=== PATIENT | male | born 1955 | race African-American/Black ===

== ENCOUNTER 2016-11-26 12:15 | Emergency (ER) | payer MEDICAID, OTHER ==
[~2016-11-26] VITALS: Ht 175.3 cm; Wt 75.0 kg
[2016-11-26] MEDS ORDERED: KETOROLAC 30MG/ML VIAL IV STA (12:57)
[2016-11-26] MEDS ORDERED: ASPIRIN 81MG TABLET PO STA (12:57)
[2016-11-26 13:20] LABS: EOSINOPHILS % 1.8 % (0.0-5.0); HEMOGLOBIN. 11.4 g/dL (14.0-18.0); MEAN CORPUSCULAR HEMOGLOBIN 28.6 pg (28.0-32.0); MEAN CORPUSCULAR VOLUME 85.3 fL (80.0-94.0); MEAN PLATELET VOLUME 6.3 fl (7.4-10.4); NEUTROPHILS % 67.2 % (40.0-76.0); PLATELET 233 x1000/uL (130-400); RED BLOOD CELL COUNT 3.98 mill/uL (4.7-6.1); RED CELL DISTRIBUTION WIDTH 14.3 % (11.6-14.6)
[2016-11-26 13:31] LABS: D-DIMER 1.9 mg/L FEU (<0.50); INR 1.1
[2016-11-26 13:37] LABS: CARBON DIOXIDE 28 mEq/L (21-32); CHLORIDE 103 mEq/L (98-107); TROPONIN I < 0.02 ng/mL (0.00-0.04)
[2016-11-26 15:24] VITALS: BP 160/79
[2016-11-26 16:27] LABS: CLARITY URINE CLEAR (CLEAR); COLOR URINE DARK YELLOW (YELLOW); GLUCOSE URINE NEGATIVE (NEGATIVE); KETONES URINE NEGATIVE (NEGATIVE); LEUKOCYTE ESTERASE URINE NEGATIVE (NEGATIVE); NITRITE URINE NEGATIVE (NEGATIVE); OCCULT BLOOD URINE NEGATIVE (NEGATIVE); PROTEIN URINE NEGATIVE (NEGATIVE); SPECIFIC GRAVITY URINE 1.032 (1.005-1.030)
[2016-11-26 16:38] LABS: *AMPHETAMINES SCREEN URINE NEGATIVE (NEGATIVE); *BARBITURATES SCREEN URINE NEGATIVE (NEGATIVE); *BENZODIAZEPINES SCREEN URINE NEGATIVE (NEGATIVE); *COCAINE SCREEN URINE PRESUMTIVE POSITIVE (NEGATIVE); CANNABINOID URINE SCREEN PRESUMTIVE POSITIVE (NEGATIVE); METHADONE URINE SCREEN NEGATIVE (NEGATIVE); OPIATES URINE SCREEN NEGATIVE (NEGATIVE); PHENCYCLIDINE URINE SCREEN PRESUMTIVE POSITIVE (NEGATIVE)
== END 2016-11-26 17:38 | disposition home or self-care (01) ==
LOC: ER 12:24 → CANBEDREQ 17:58
DX: R07.9 Chest pain, unspecified (principal); I10 Essential (primary) hypertension; F17.210 Nicotine dependence, cigarettes, uncomplicated; F14.10 Cocaine abuse, uncomplicated
CPT/HCPCS: 36415; 71010; 80053; 80305; 81003; 83690; 84484; 85025; 85379; 85610; 85730; 93005; 96374; 99285; J1885; Z7610

== ENCOUNTER 2017-03-04 07:59 | Emergency (ER) | payer MEDICAID ==
[~2017-03-04] VITALS: Ht 180.3 cm; Wt 84.0 kg
[2017-03-04 08:30] LABS: BASOPHILS % 0.9 % (0.0-2.0); EOSINOPHILS % 0.5 % (0.0-5.0); HEMATOCRIT. 25.1 % (42.0-52.0); HEMOGLOBIN. 8.4 g/dL (14.0-18.0); LYMPHOCYTES % 15.7 % (20.0-50.0); MEAN CORPUSCULAR HEMOGLOBIN 29.2 pg (28.0-32.0); MEAN CORPUSCULAR VOLUME 87.3 fL (80.0-94.0); MEAN PLATELET VOLUME 6.8 fl (7.4-10.4); MONOCYTES % 7.8 % (2.0-8.0); NEUTROPHILS % 75.1 % (40.0-76.0); PLATELET 237 x1000/uL (130-400); RED BLOOD CELL COUNT 2.88 mill/uL (4.7-6.1); RED CELL DISTRIBUTION WIDTH 14.4 % (11.6-14.6)
[2017-03-04 08:39] LABS: INR 1.2; PARTIAL THROMBOPLASTIN TIME 27.1 sec (23.4-31.0)
[2017-03-04 08:48] LABS: CARBON DIOXIDE 24 mEq/L (21-32); CHLORIDE 108 mEq/L (98-107); CREATINE KINASE 87 IU/L (39-308); TROPONIN I 0.02 ng/mL (0.00-0.04)
[2017-03-04 08:49] LABS: CREATINE KINASE MB FRACTION 0.7 ng/mL (0.5-3.6)
[2017-03-04] MEDS ORDERED: ALBUTEROL (0.083%) 2.5MG/3ML NEB HHN STA (09:06)
[2017-03-04] MEDS ORDERED: FUROSEMIDE 40MG/4ML VIAL IVP ONE (09:15)
[2017-03-04] MEDS ORDERED: LEVOFLOXACIN 750MG PREMIX 150 ML IV ONE (09:15)
[2017-03-04 10:14] VITALS: BP 147/100
== END 2017-03-04 12:40 | disposition left against medical advice (07) ==
LOC: ER 07:59 → ENRESERV 12:11 → CANRESERV 12:11 → CANBEDREQ 12:30 → ER 12:40
DX: I50.9 Heart failure, unspecified (principal); I11.0 Hypertensive heart disease with heart failure; J18.9 Pneumonia, unspecified organism; F14.10 Cocaine abuse, uncomplicated; I69.351 Hemiplegia and hemiparesis following cerebral infarction affecting right dominant side; Z95.1 Presence of aortocoronary bypass graft; Z72.0 Tobacco use; Z86.73 Personal history of transient ischemic attack (TIA), and cerebral infarction without residual deficits
CPT/HCPCS: 36415; 71010; 80053; 82550; 82553; 83605; 83690; 83880; 84484; 85025; 85610; 85730; 87040; 93005; 94640; 96365; 96366; 96375; 99291; J1940; J1956; J7611; Z7610

== ENCOUNTER 2017-03-09 04:37 | Inpatient (IN) | payer MEDICAID ==
[~2017-03-09] VITALS: Ht 182.9 cm; Wt 64.9 kg
[2017-03-09] VITALS (15 sets, daily range): BP systolic 83–157; BP diastolic 59–112
[2017-03-09] MEDS ORDERED: ASPIRIN 81MG TABLET PO ONE (05:00)
[2017-03-09] MEDS ORDERED: NITROGLYCERIN OINT 1GM/INCH UDPKT TD ONE (05:00)
[2017-03-09 05:26] LABS: BG BASE EXCESS -1.1 mmol/L (-2.0-2.0); BG CARBOXYHEMOGLOBIN 1.6 % (0.5-1.5); BG DEOXYHEMOGLOBIN 4.7 % (0.0-5.0); BG FRACTION INSPIRED OXYGEN 21; BG HCO3 ACT 23.4 mmol/L (22.0-26.0); BG METHEMOGLOBIN 0.3 % (0.0-1.5); BG OXYGEN SATURATION 95.2 % (92.0-98.5); BG OXYHEMOGLOBIN 93.4 % (94.0-97.0); BG PCO2 38.3 mmHg (35.0-45.0); BG PH 7.404 (7.350-7.450); BG PO2 79.2 mmHg (75.0-100.0); BG SAMPLE SITE RIGHT BRACHIAL; BG TOTAL HEMOGLOBIN 9.8 g/dL (12.0-18.0); BG VENT MODE ROOM AIR
[2017-03-09 05:26] LABS: BASOPHILS % 0.7 % (0.0-2.0); EOSINOPHILS % 1.8 % (0.0-5.0); HEMATOCRIT. 24.9 % (42.0-52.0); HEMOGLOBIN. 8.4 g/dL (14.0-18.0); LYMPHOCYTES % 24.7 % (20.0-50.0); MEAN CORPUSCULAR HEMOGLOBIN 29.6 pg (28.0-32.0); MEAN CORPUSCULAR VOLUME 87.5 fL (80.0-94.0); MEAN PLATELET VOLUME 7.2 fl (7.4-10.4); MONOCYTES % 11.4 % (2.0-8.0); NEUTROPHILS % 61.4 % (40.0-76.0); PLATELET 229 x1000/uL (130-400); RED BLOOD CELL COUNT 2.85 mill/uL (4.7-6.1); RED CELL DISTRIBUTION WIDTH 14.6 % (11.6-14.6)
[2017-03-09 05:32] LABS: D-DIMER 1.63 mg/L FEU (<0.50); INR 1.2; PROTHROMBIN TIME 12.1 sec (9.4-11.6)
[2017-03-09 05:39] LABS: CARBON DIOXIDE 26 mEq/L (21-32); CHLORIDE 106 mEq/L (98-107); ETHANOL BLOOD < 10 mg/dL; TROPONIN I 0.02 ng/mL (0.00-0.04)
[2017-03-09 06:50] LABS: CLARITY URINE CLEAR (CLEAR); COLOR URINE YELLOW (YELLOW); GLUCOSE URINE NEGATIVE (NEGATIVE); KETONES URINE NEGATIVE (NEGATIVE); LEUKOCYTE ESTERASE URINE NEGATIVE (NEGATIVE); NITRITE URINE NEGATIVE (NEGATIVE); OCCULT BLOOD URINE TRACE (NEGATIVE); PROTEIN URINE NEGATIVE (NEGATIVE); SPECIFIC GRAVITY URINE 1.016 (1.005-1.030)
[2017-03-09 07:29] LABS: *AMPHETAMINES SCREEN URINE NEGATIVE (NEGATIVE); *BARBITURATES SCREEN URINE NEGATIVE (NEGATIVE); *BENZODIAZEPINES SCREEN URINE NEGATIVE (NEGATIVE); *COCAINE SCREEN URINE PRESUMTIVE POSITIVE (NEGATIVE); CANNABINOID URINE SCREEN NEGATIVE (NEGATIVE); METHADONE URINE SCREEN NEGATIVE (NEGATIVE); OPIATES URINE SCREEN NEGATIVE (NEGATIVE); PHENCYCLIDINE URINE SCREEN NEGATIVE (NEGATIVE)
[2017-03-09 10:47] LABS: T4 FREE 1.14 ng/dL (0.76-1.46)
[2017-03-09] MEDS ORDERED: ACETAMINOPHEN 650MG SUPP PR PRN (12:30)
[2017-03-09] MEDS ORDERED: HYDROCODONE/ACETAMINOPHEN 5/325MG TABLET PO PRN (12:30)
[2017-03-09] MEDS ORDERED: DIPHENHYDRAMINE 50MG/ML VIAL IV PRN (12:30)
[2017-03-09] MEDS ORDERED: ACETAMINOPHEN 650MG/20.3ML UDC GT PRN (12:30)
[2017-03-09] MEDS ORDERED: CLONIDINE 0.1MG TABLET PO PRN (12:30)
[2017-03-09] MEDS ORDERED: NA PHOS,M-B/NA PHOS,DI-BA ENEMA 118ML PR PRN (12:30)
[2017-03-09] MEDS ORDERED: ACETAMINOPHEN 325MG TABLET PO PRN (12:30)
[2017-03-09] MEDS ORDERED: MAGNESIUM/ALUMINUM HYDROXIDE/SIMETHICONE 30ML UDC PO PRN (12:30)
[2017-03-09] MEDS ORDERED: DOCUSATE SODIUM 100MG CAPSULE PO PRN (12:30)
[2017-03-09] MEDS ORDERED: GUAIFENESIN 200MG/10ML SUGAR FREE UDC PO PRN (12:30)
[2017-03-09] MEDS ORDERED: ONDANSETRON HCL 4MG/2ML VIAL IV PRN (12:30)
[2017-03-09] MEDS ORDERED: SODIUM CHLORIDE 0.9% 10ML VIAL ONE (12:43)
[2017-03-09] MEDS ORDERED: IOHEXOL-350 100 ML BOTTLE ONE (12:43)
[2017-03-09 14:22] LABS: CREATINE KINASE MB FRACTION 1.2 ng/mL (0.5-3.6)
[2017-03-09] MEDS: LOSARTAN POTASSIUM 25 MG TABLET PO SCH (20:31)
[2017-03-09] MEDS ORDERED: ZOLPIDEM TARTRATE 5MG TABLET PO PRN (21:00)
[2017-03-10] VITALS (10 sets, daily range): BP systolic 126–154; BP diastolic 69–104
[2017-03-10] MEDS ORDERED: DIPHENHYDRAMINE 50MG/ML VIAL IV PRN (04:30)
[2017-03-10 07:20] LABS: BASOPHILS % 0.7 % (0.0-2.0); EOSINOPHILS % 0.9 % (0.0-5.0); HEMATOCRIT. 27.5 % (42.0-52.0); HEMOGLOBIN. 9.1 g/dL (14.0-18.0); LYMPHOCYTES % 22.7 % (20.0-50.0); MEAN CORPUSCULAR HEMOGLOBIN 29.4 pg (28.0-32.0); MEAN CORPUSCULAR VOLUME 88.6 fL (80.0-94.0); MEAN PLATELET VOLUME 8.1 fl (7.4-10.4); NEUTROPHILS % 65.7 % (40.0-76.0); PLATELET 265 x1000/uL (130-400); RED BLOOD CELL COUNT 3.11 mill/uL (4.7-6.1); RED CELL DISTRIBUTION WIDTH 14.7 % (11.6-14.6)
[2017-03-10 07:36] LABS: CHLORIDE 102 mEq/L (98-107)
[2017-03-10 08:22] LABS: CARBON DIOXIDE 23 mEq/L (21-32); CREATINE KINASE 65 IU/L (39-308); CREATINE KINASE MB FRACTION 1.2 ng/mL (0.5-3.6)
[2017-03-10] MEDS: LOSARTAN POTASSIUM 25 MG TABLET PO SCH (08:57)
[2017-03-10] MEDS ORDERED: FUROSEMIDE 40MG/4ML VIAL IVP SCH (09:00)
[2017-03-10 14:29] LABS: HEPATITIS B SURFACE ANTIGEN NEGATIVE
[2017-03-10 14:57] LABS: HEPATITIS B CORE AB IGM NEGATIVE
[2017-03-10 14:59] LABS: HEPATITIS A AB IGM NEGATIVE (NEGATIVE)
== END 2017-03-10 18:45 | disposition home or self-care (01) | DRG 816 ==
LOC: ER 04:38 → 3WST 05:06 → ENRESERV 10:17
PROVIDERS: ADMIT Family Medicine; ATTEND Family Medicine
DX: T40.5X1A Poisoning by cocaine, accidental (unintentional), initial encounter (principal); I50.31 Acute diastolic (congestive) heart failure; I27.2 Other secondary pulmonary hypertension; E44.1 Mild protein-calorie malnutrition; I25.10 Atherosclerotic heart disease of native coronary artery without angina pectoris; I11.0 Hypertensive heart disease with heart failure; I50.32 Chronic diastolic (congestive) heart failure; D63.8 Anemia in other chronic diseases classified elsewhere; F14.90 Cocaine use, unspecified, uncomplicated; F17.210 Nicotine dependence, cigarettes, uncomplicated; K76.9 Liver disease, unspecified; Z86.73 Personal history of transient ischemic attack (TIA), and cerebral infarction without residual deficits; Z95.1 Presence of aortocoronary bypass graft; Z95.2 Presence of prosthetic heart valve; Z68.1 Body mass index [BMI] 19.9 or less, adult; I73.9 Peripheral vascular disease, unspecified
CPT/HCPCS: 36415; 36600; 71010; 71275; 76700; 80053; 80061; 80305; 81001; 82105; 82375; 82378; 82550; 82553; 82805; 83036; 83690; 83880; 84439; 84443; 84484; 85025; 85379; 85610; 86705; 86709; 86803; 87340; 93005; 93306; 99285; A4216; G0482; J1200; J1940; J2405; Q9967

== ENCOUNTER 2017-04-24 04:45 | Emergency (ER) | payer MEDICAID ==
[~2017-04-24] VITALS: Ht 182.9 cm; Wt 82.0 kg
[2017-04-24] MEDS ORDERED: ASPIRIN 81MG TABLET PO ONE (05:00)
[2017-04-24] MEDS: NITROGLYCERIN 0.4MG TABLET SL SL PRN ×2 (05:17→05:18)
[2017-04-24 05:48] LABS: BASOPHILS % 0.5 % (0.0-2.0); EOSINOPHILS % 1.4 % (0.0-5.0); HEMATOCRIT. 29.7 % (42.0-52.0); HEMOGLOBIN. 9.8 g/dL (14.0-18.0); LYMPHOCYTES % 21.7 % (20.0-50.0); MEAN CORPUSCULAR VOLUME 81.8 fL (80.0-94.0); MEAN PLATELET VOLUME 7.5 fl (7.4-10.4); MONOCYTES % 9.8 % (2.0-8.0); NEUTROPHILS % 66.6 % (40.0-76.0); PLATELET 230 x1000/uL (130-400); RED BLOOD CELL COUNT 3.64 mill/uL (4.7-6.1); RED CELL DISTRIBUTION WIDTH 14.9 % (11.6-14.6)
[2017-04-24 05:50] LABS: INR 1.1; PROTHROMBIN TIME 11.9 sec (9.4-11.6)
[2017-04-24 06:02] LABS: CARBON DIOXIDE 26 mEq/L (21-32); CHLORIDE 107 mEq/L (98-107); TROPONIN I < 0.02 ng/mL (0.00-0.04)
[2017-04-24] MEDS ORDERED: FUROSEMIDE 20MG TABLET PO ONE (06:15)
[2017-04-24] MEDS ORDERED: LORAZEPAM 0.5MG TABLET PO ONE (06:15)
[2017-04-24 06:53] LABS: *AMPHETAMINES SCREEN URINE NEGATIVE (NEGATIVE); *BARBITURATES SCREEN URINE NEGATIVE (NEGATIVE); *BENZODIAZEPINES SCREEN URINE NEGATIVE (NEGATIVE); *COCAINE SCREEN URINE PRESUMTIVE POSITIVE (NEGATIVE); CANNABINOID URINE SCREEN PRESUMTIVE POSITIVE (NEGATIVE); METHADONE URINE SCREEN NEGATIVE (NEGATIVE); OPIATES URINE SCREEN NEGATIVE (NEGATIVE); PHENCYCLIDINE URINE SCREEN NEGATIVE (NEGATIVE)
[2017-04-24 08:32] VITALS: BP 149/89
== END 2017-04-24 08:35 | disposition left against medical advice (07) ==
LOC: ER 05:03 → ENRESERV 08:28 → CANRESERV 08:28 → ER 08:35 → CANBEDREQ 08:59
DX: I11.0 Hypertensive heart disease with heart failure (principal); I50.9 Heart failure, unspecified; F14.10 Cocaine abuse, uncomplicated; F17.210 Nicotine dependence, cigarettes, uncomplicated; Z86.73 Personal history of transient ischemic attack (TIA), and cerebral infarction without residual deficits; Z95.2 Presence of prosthetic heart valve; Z88.6 Allergy status to analgesic agent
CPT/HCPCS: 36415; 71010; 80053; 80305; 83880; 84484; 85025; 85610; 93005; 99285

== ENCOUNTER 2017-04-26 04:21 | Inpatient (IN) | payer MEDICAID ==
[~2017-04-26] VITALS: Ht 182.9 cm; Wt 64.9 kg
[2017-04-26 06:49] LABS: BASOPHILS % 0.4 % (0.0-2.0); EOSINOPHILS % 1.6 % (0.0-5.0); HEMOGLOBIN. 9.6 g/dL (14.0-18.0); LYMPHOCYTES % 23.4 % (20.0-50.0); MEAN CORPUSCULAR HEMOGLOBIN 26.8 pg (28.0-32.0); MEAN CORPUSCULAR VOLUME 81.4 fL (80.0-94.0); MEAN PLATELET VOLUME 8.1 fl (7.4-10.4); MONOCYTES % 12.8 % (2.0-8.0); NEUTROPHILS % 61.8 % (40.0-76.0); PLATELET 227 x1000/uL (130-400); RED BLOOD CELL COUNT 3.56 mill/uL (4.7-6.1); RED CELL DISTRIBUTION WIDTH 15.4 % (11.6-14.6)
[2017-04-26 06:58] LABS: CARBON DIOXIDE 26 mEq/L (21-32); CHLORIDE 106 mEq/L (98-107)
[2017-04-26 07:05] LABS: TROPONIN I 0.02 ng/mL (0.00-0.04)
[2017-04-26 07:13] LABS: INR 1.2; PROTHROMBIN TIME 12.5 sec (9.4-11.6)
[2017-04-26] MEDS ORDERED: FUROSEMIDE 40MG/4ML VIAL IV ONE (07:30)
[2017-04-26] MEDS ORDERED: SODIUM CHLORIDE 0.9% 1,000 ML IV SCH (08:03)
[2017-04-26] MEDS ORDERED: GUAIFENESIN 200MG/10ML SUGAR FREE UDC PO PRN (09:15)
[2017-04-26] MEDS ORDERED: DIPHENHYDRAMINE 50MG/ML VIAL IV PRN (09:15)
[2017-04-26] MEDS ORDERED: HYDROCODONE/ACETAMINOPHEN 5/325MG TABLET PO PRN (09:15)
[2017-04-26] MEDS ORDERED: HYDROMORPHONE HCL/PF 2MG/ML CPJ IV PRN (09:15)
[2017-04-26] MEDS ORDERED: ONDANSETRON HCL 4MG/2ML VIAL IV PRN (09:15)
[2017-04-26] MEDS ORDERED: DOCUSATE SODIUM 100MG CAPSULE PO PRN (09:15)
[2017-04-26] MEDS ORDERED: NA PHOS,M-B/NA PHOS,DI-BA ENEMA 118ML PR PRN (09:15)
[2017-04-26] MEDS ORDERED: MAGNESIUM/ALUMINUM HYDROXIDE/SIMETHICONE 30ML UDC PO PRN (09:15)
[2017-04-26] MEDS ORDERED: CLONIDINE 0.1MG TABLET PO PRN (09:15)
[2017-04-26] MEDS ORDERED: IPRATROPIUM/ALBUTEROL 0.5-3(2.5)MG/3ML NEB INH PRN (09:15)
[2017-04-26 09:46] LABS: CHLORIDE 104 mEq/L (98-107)
[2017-04-26 09:51] LABS: CARBON DIOXIDE 27 mEq/L (21-32)
[2017-04-26 09:59] LABS: T4 FREE 1.23 ng/dL (0.76-1.46)
[2017-04-26 10:04] LABS: *AMPHETAMINES SCREEN URINE NEGATIVE (NEGATIVE); *BARBITURATES SCREEN URINE NEGATIVE (NEGATIVE); *BENZODIAZEPINES SCREEN URINE NEGATIVE (NEGATIVE); *COCAINE SCREEN URINE PRESUMTIVE POSITIVE (NEGATIVE); CANNABINOID URINE SCREEN PRESUMTIVE POSITIVE (NEGATIVE); METHADONE URINE SCREEN NEGATIVE (NEGATIVE); OPIATES URINE SCREEN NEGATIVE (NEGATIVE); PHENCYCLIDINE URINE SCREEN NEGATIVE (NEGATIVE)
[2017-04-26 12:00] VITALS: BP 141/98
[2017-04-26] MEDS ORDERED: LOSA25TA12 PO (12:11)
[2017-04-26] MEDS ORDERED: FURO-151 PO (12:11)
[2017-04-26 12:26] VITALS: BP 141/98
[2017-04-26] MEDS: ENOXAPARIN 40MG/0.4ML SYR SUBCUT SCH (13:51)
[2017-04-26 16:00] VITALS: BP 127/81
[2017-04-26 16:26] LABS: CREATINE KINASE 78 IU/L (39-308); CREATINE KINASE MB FRACTION 1.3 ng/mL (0.5-3.6); TROPONIN I < 0.02 ng/mL (0.00-0.04)
[2017-04-26 20:00] VITALS: BP 134/96
[2017-04-26] MEDS: LORAZEPAM 2MG/ML CPJ IV PRN (20:02)
[2017-04-26] MEDS: ACETAMINOPHEN 325MG TABLET PO PRN (20:02)
[2017-04-26 23:42] LABS: CREATINE KINASE 64 IU/L (39-308)
[2017-04-26 23:43] LABS: TROPONIN I < 0.02 ng/mL (0.00-0.04)
[2017-04-27] VITALS: BP 132/85
[2017-04-27] MEDS: LORAZEPAM 2MG/ML CPJ IV PRN (02:28)
[2017-04-27 04:00] VITALS: BP 131/86
[2017-04-27 06:49] LABS: BASOPHILS % 0.7 % (0.0-2.0); HEMATOCRIT. 28.1 % (42.0-52.0); HEMOGLOBIN. 9.3 g/dL (14.0-18.0); LYMPHOCYTES % 30.8 % (20.0-50.0); MEAN CORPUSCULAR HEMOGLOBIN 26.6 pg (28.0-32.0); MEAN CORPUSCULAR VOLUME 80.9 fL (80.0-94.0); MEAN PLATELET VOLUME 8.4 fl (7.4-10.4); MONOCYTES % 14.2 % (2.0-8.0); NEUTROPHILS % 51.3 % (40.0-76.0); PLATELET 229 x1000/uL (130-400); RED BLOOD CELL COUNT 3.48 mill/uL (4.7-6.1); RED CELL DISTRIBUTION WIDTH 15.1 % (11.6-14.6)
[2017-04-27 07:23] LABS: CREATINE KINASE 93 IU/L (39-308); CREATINE KINASE MB FRACTION 1.7 ng/mL (0.5-3.6); HDL CHOLESTEROL 70 mg/dL (40-59); LDL CHOLESTEROL 72 mg/dL (5-100); T4 FREE 1.28 ng/dL (0.76-1.46); TROPONIN I < 0.02 ng/mL (0.00-0.04)
[2017-04-27 08:00] VITALS: BP 133/85
[2017-04-27] MEDS: ENOXAPARIN 40MG/0.4ML SYR SUBCUT SCH (08:29)
[2017-04-27] MEDS: FUROSEMIDE 40MG TABLET PO SCH (08:29)
[2017-04-27] MEDS: LOSARTAN POTASSIUM 25 MG TABLET PO SCH (08:30)
[2017-04-27 12:00] VITALS: BP 138/94
[2017-04-27 20:00] VITALS: BP 133/95
[2017-04-27] MEDS: ACETAMINOPHEN 325MG TABLET PO PRN (20:04)
[2017-04-27] MEDS ORDERED: ZOLPIDEM TARTRATE 5MG TABLET PO PRN (21:00)
[2017-04-27] MEDS ORDERED: TRAZODONE HCL 50MG TABLET PO SCH (21:00)
[2017-04-28] VITALS: BP 124/81
[2017-04-28 04:00] VITALS: BP 127/87
[2017-04-28 08:00] VITALS: BP 111/72
[2017-04-28] MEDS: ENOXAPARIN 40MG/0.4ML SYR SUBCUT SCH (08:27)
[2017-04-28] MEDS: FUROSEMIDE 40MG TABLET PO SCH (08:28)
[2017-04-28] MEDS: LOSARTAN POTASSIUM 25 MG TABLET PO SCH (08:28)
[2017-04-28 11:55] VITALS: BP 117/69
[2017-04-28 11:57] VITALS: BP 124/79
[2017-04-28 15:56] VITALS: BP 117/76
== END 2017-04-28 15:15 | disposition home or self-care (01) | DRG 133 ==
LOC: ER 04:21 → 5WST 09:17 → ENRESERV 10:21
PROVIDERS: ADMIT Internal Medicine; ATTEND Internal Medicine
DX: J96.00 Acute respiratory failure, unspecified whether with hypoxia or hypercapnia (principal); I50.23 Acute on chronic systolic (congestive) heart failure; J84.9 Interstitial pulmonary disease, unspecified; J44.9 Chronic obstructive pulmonary disease, unspecified; I11.0 Hypertensive heart disease with heart failure; I25.10 Atherosclerotic heart disease of native coronary artery without angina pectoris; F14.10 Cocaine abuse, uncomplicated; E78.5 Hyperlipidemia, unspecified; F17.210 Nicotine dependence, cigarettes, uncomplicated; G47.00 Insomnia, unspecified; I25.2 Old myocardial infarction; Z86.73 Personal history of transient ischemic attack (TIA), and cerebral infarction without residual deficits; Z91.19 Patient's noncompliance with other medical treatment and regimen; Z95.2 Presence of prosthetic heart valve; Z95.1 Presence of aortocoronary bypass graft; Z88.8 Allergy status to other drugs, medicaments and biological substances; Z72.89 Other problems related to lifestyle
CPT/HCPCS: 36415; 71010; 80048; 80061; 80305; 82550; 82553; 83036; 83880; 84439; 84443; 84484; 85025; 85379; 85610; 93005; 93306; 96374; 99285; J1200; J1650; J1940; J2060; J7030; J7620

== ENCOUNTER 2017-07-30 03:30 | Emergency (ER) | payer MEDICAID ==
[~2017-07-30] VITALS: Ht 175.3 cm; Wt 64.0 kg
[~2017-07-30 03:30] MED LIST: FURO-151 PO; LOSA25TA12 PO
[2017-07-30] MEDS ORDERED: TRAMADOL 50MG TABLET PO ONE (08:15)
[2017-07-30 09:11] VITALS: BP 120/80
== END 2017-07-30 09:12 | disposition home or self-care (01) ==
LOC: ER 03:30
DX: M25.572 Pain in left ankle and joints of left foot (principal); F14.10 Cocaine abuse, uncomplicated; F17.200 Nicotine dependence, unspecified, uncomplicated; Z79.899 Other long term (current) drug therapy; Z98.890 Other specified postprocedural states
CPT/HCPCS: 73630; 99284

== ENCOUNTER 2017-08-02 04:13 | Inpatient (IN) | payer MEDICAID ==
[~2017-08-02] VITALS: Ht 152.4 cm; Wt 65.8 kg
[2017-08-02] MEDS ORDERED: ALBUTEROL (0.083%) 2.5MG/3ML NEB HHN STA (04:46)
[2017-08-02] MEDS ORDERED: PREDNISONE 20MG TABLET PO STA (04:46)
[2017-08-02] MEDS ORDERED: IPRATROPIUM BROMIDE (0.02%) 0.5MG/2.5ML NEB HHN STA (04:46)
[2017-08-02 05:21] LABS: HEMOGLOBIN. 8.7 g/dL (14.0-18.0); MEAN CORPUSCULAR HEMOGLOBIN 23.3 pg (28.0-32.0); MEAN CORPUSCULAR VOLUME 75.6 fL (80.0-94.0); MEAN PLATELET VOLUME 7.2 fl (7.4-10.4); PLATELET 239 x1000/uL (130-400); RED BLOOD CELL COUNT 3.71 mill/uL (4.7-6.1); RED CELL DISTRIBUTION WIDTH 18.5 % (11.6-14.6)
[2017-08-02 05:23] LABS: CHLORIDE 105 mEq/L (98-107)
[2017-08-02] MEDS ORDERED: ALBUTEROL (0.5%) 2.5MG/0.5ML NEB HHN ONE (07:23)
[2017-08-02] MEDS ORDERED: IPRATROPIUM/ALBUTEROL 0.5-3(2.5)MG/3ML NEB ONE (07:24)
[2017-08-02] MEDS ORDERED: IPRATROPIUM BROMIDE (0.02%) 0.5MG/2.5ML NEB ONE (07:26)
[2017-08-02 08:53] LABS: PLATELET ESTIMATE NORMAL
[2017-08-02 11:30] VITALS: BP 116/82
[2017-08-02 12:00] VITALS: BP 113/72
[2017-08-02 16:00] VITALS: BP 120/81
[2017-08-02] MEDS ORDERED: CLONIDINE 0.1MG TABLET PO PRN (17:45)
[2017-08-02] MEDS ORDERED: ACETAMINOPHEN 325MG TABLET PO PRN (17:45)
[2017-08-02] MEDS ORDERED: GUAIFENESIN 200MG/10ML SUGAR FREE UDC PO PRN (17:45)
[2017-08-02] MEDS ORDERED: ONDANSETRON HCL 4MG/2ML INJ IV PRN (17:45)
[2017-08-02] MEDS ORDERED: IPRATROPIUM/ALBUTEROL 0.5-3(2.5)MG/3ML NEB INH PRN (17:45)
[2017-08-02] MEDS ORDERED: DIPHENHYDRAMINE 50MG/ML VIAL IV PRN (17:45)
[2017-08-02] MEDS ORDERED: MAGNESIUM/ALUMINUM HYDROXIDE/SIMETHICONE 30ML UDC PO PRN (17:45)
[2017-08-02] MEDS: FUROSEMIDE 40MG/4ML VIAL IVP SCH (18:17)
[2017-08-02 20:00] VITALS: BP 140/98
[2017-08-02] MEDS ORDERED: ENOXAPARIN 40MG/0.4ML SYR SUBCUT SCH (20:00)
[2017-08-02] MEDS ORDERED: TEMAZEPAM 15MG CAPSULE PO PRN (20:15)
[2017-08-02] MEDS: SODIUM CHLORIDE 0.9% INJ 3ML FLUSH IVF SCH (20:58)
[2017-08-03] VITALS: BP 118/79
[2017-08-03 04:00] VITALS: BP 130/97
[2017-08-03] MEDS: FUROSEMIDE 40MG/4ML VIAL IVP SCH (05:33)
[2017-08-03] MEDS: SODIUM CHLORIDE 0.9% INJ 3ML FLUSH IVF SCH (06:17)
[2017-08-03 06:53] LABS: BASOPHILS % 0.6 % (0.0-2.0); EOSINOPHILS % 0.1 % (0.0-5.0); HEMATOCRIT. 27.7 % (42.0-52.0); HEMOGLOBIN. 8.8 g/dL (14.0-18.0); LYMPHOCYTES % 16.1 % (20.0-50.0); MEAN CORPUSCULAR HEMOGLOBIN 23.8 pg (28.0-32.0); MEAN CORPUSCULAR VOLUME 74.8 fL (80.0-94.0); MEAN PLATELET VOLUME 7.4 fl (7.4-10.4); MONOCYTES % 9.8 % (2.0-8.0); NEUTROPHILS % 73.4 % (40.0-76.0); PLATELET 260 x1000/uL (130-400); RED CELL DISTRIBUTION WIDTH 18.5 % (11.6-14.6)
[2017-08-03 08:00] VITALS: BP 116/76
[2017-08-03 08:40] LABS: CHLORIDE 101 mEq/L (98-107)
[2017-08-03] MEDS ORDERED: POTASSIUM CHLORIDE 20MEQ TABLET SR PO SCH (09:00)
[2017-08-03] MEDS ORDERED: LOSARTAN POTASSIUM 25 MG TABLET PO SCH (09:00)
[2017-08-03] MEDS ORDERED: AMLODIPINE 5MG TABLET PO SCH (09:00)
[2017-08-03 11:53] LABS: T4 FREE 1.18 ng/dL (0.76-1.46)
[2017-08-03 14:18] VITALS: BP 118/70
[2018-01-22] MEDS ORDERED: LEVO500T2 MT (12:08)
[2018-02-14] MEDS ORDERED: FURO-151 MT (08:50)
[2018-02-14] MEDS ORDERED: LACT10SO30 MT (08:50)
[2018-02-14] MEDS ORDERED: LEVO500T2 MT (08:50)
== END 2017-08-03 15:15 | disposition home or self-care (01) | DRG 194 ==
LOC: ER 04:13 → 5WST 06:02 → EDBEDREQ 06:09 → EDBEDREQTM 06:09 → ENRESERV 10:04
PROVIDERS: ADMIT Internal Medicine; ATTEND Internal Medicine
DX: I11.0 Hypertensive heart disease with heart failure (principal); E43 Unspecified severe protein-calorie malnutrition; I27.20 Pulmonary hypertension, unspecified; I50.23 Acute on chronic systolic (congestive) heart failure; D64.9 Anemia, unspecified; I34.0 Nonrheumatic mitral (valve) insufficiency; E78.5 Hyperlipidemia, unspecified; F17.200 Nicotine dependence, unspecified, uncomplicated; J44.9 Chronic obstructive pulmonary disease, unspecified; R17 Unspecified jaundice; Z82.49 Family history of ischemic heart disease and other diseases of the circulatory system; Z83.3 Family history of diabetes mellitus; Z95.1 Presence of aortocoronary bypass graft; Z68.28 Body mass index [BMI] 28.0-28.9, adult; Z88.8 Allergy status to other drugs, medicaments and biological substances; Z79.899 Other long term (current) drug therapy; Z72.89 Other problems related to lifestyle
CPT/HCPCS: 36415; 71045; 80048; 80061; 83036; 83735; 83880; 84439; 84443; 84484; 93005; 99285; J1650; J1940; J2405; J7512; J7611; J7620

== ENCOUNTER 2017-08-23 04:38 | Emergency (ER) | payer MEDICAID ==
[~2017-08-23] VITALS: Ht 182.9 cm; Wt 66.0 kg
[2017-08-23] MEDS ORDERED: ACETAMINOPHEN 325MG TABLET PO ONE (05:30)
[2017-08-23 05:47] LABS: HEMATOCRIT. 27.9 % (42.0-52.0); HEMOGLOBIN. 8.8 g/dL (14.0-18.0); MEAN PLATELET VOLUME 7.2 fl (7.4-10.4); PLATELET 234 x1000/uL (130-400); RED BLOOD CELL COUNT 3.66 mill/uL (4.7-6.1); RED CELL DISTRIBUTION WIDTH 18.5 % (11.6-14.6)
[2017-08-23 05:54] LABS: INR 1.2; PROTHROMBIN TIME 12.1 sec (9.4-11.6)
[2017-08-23 05:58] LABS: CHLORIDE 104 mEq/L (98-107)
[2017-08-23 07:10] LABS: PLATELET ESTIMATE NORMAL
[2017-08-23 07:37] VITALS: BP 119/81
== END 2017-08-23 07:58 | disposition home or self-care (01) ==
LOC: ER 04:38
DX: M25.561 Pain in right knee (principal); M25.562 Pain in left knee; M25.572 Pain in left ankle and joints of left foot; M79.89 Other specified soft tissue disorders; I10 Essential (primary) hypertension; F14.10 Cocaine abuse, uncomplicated; F17.210 Nicotine dependence, cigarettes, uncomplicated; Z95.1 Presence of aortocoronary bypass graft; Z86.73 Personal history of transient ischemic attack (TIA), and cerebral infarction without residual deficits; Z59.0 Homelessness
CPT/HCPCS: 36415; 73610; 80053; 85025; 85610; 99285; Z7610

== ENCOUNTER 2017-09-05 09:49 | Emergency (ER) | payer MEDICAID ==
[~2017-09-05] VITALS: Ht 175.3 cm; Wt 80.0 kg
[2017-09-05 12:42] VITALS: BP 135/94
== END 2017-09-05 12:45 | disposition home or self-care (01) ==
LOC: ER 10:03
DX: B02.9 Zoster without complications (principal); I11.0 Hypertensive heart disease with heart failure; I50.9 Heart failure, unspecified; Z86.73 Personal history of transient ischemic attack (TIA), and cerebral infarction without residual deficits
CPT/HCPCS: 99283; Z7610

== ENCOUNTER 2017-09-05 23:13 | Emergency (ER) | payer MEDICAID ==
[~2017-09-05] VITALS: Ht 177.8 cm; Wt 68.0 kg
[2017-09-06] MEDS ORDERED: ACETAMINOPHEN WITH CODEINE 300/30MG TABLET PO STA (06:40)
[2017-09-06 07:30] LABS: BASOPHILS % 1.3 % (0.0-2.0); EOSINOPHILS % 0.9 % (0.0-5.0); HEMOGLOBIN. 9.5 g/dL (14.0-18.0); LYMPHOCYTES % 34.1 % (20.0-50.0); MEAN CORPUSCULAR HEMOGLOBIN 24.3 pg (28.0-32.0); MEAN CORPUSCULAR VOLUME 76.7 fL (80.0-94.0); MEAN PLATELET VOLUME 6.7 fl (7.4-10.4); NEUTROPHILS % 49.7 % (40.0-76.0); PLATELET 280 x1000/uL (130-400); RED BLOOD CELL COUNT 3.91 mill/uL (4.7-6.1); RED CELL DISTRIBUTION WIDTH 18.5 % (11.6-14.6)
[2017-09-06 07:33] LABS: CHLORIDE 105 mEq/L (98-107)
[2017-09-06 09:47] VITALS: BP 136/99
== END 2017-09-06 10:03 | disposition home or self-care (01) ==
LOC: ER 23:13
DX: B02.9 Zoster without complications (principal); I11.0 Hypertensive heart disease with heart failure; I50.9 Heart failure, unspecified; D64.9 Anemia, unspecified; J44.9 Chronic obstructive pulmonary disease, unspecified; Z86.73 Personal history of transient ischemic attack (TIA), and cerebral infarction without residual deficits
CPT/HCPCS: 36415; 71045; 80053; 83880; 85025; 93005; 99285; Z7610

== ENCOUNTER 2017-09-21 05:39 | Inpatient (IN) | payer MEDICAID ==
[~2017-09-21] VITALS: Ht 182.9 cm; Wt 58.1 kg
[2017-09-21] MEDS ORDERED: ALBUTEROL (0.083%) 2.5MG/3ML NEB HHN STA (06:32)
[2017-09-21] MEDS ORDERED: IPRATROPIUM BROMIDE (0.02%) 0.5MG/2.5ML NEB HHN STA (06:32)
[2017-09-21 07:53] LABS: BASOPHILS % 0.9 % (0.0-2.0); EOSINOPHILS % 0.7 % (0.0-5.0); HEMATOCRIT. 30.7 % (42.0-52.0); HEMOGLOBIN. 9.9 g/dL (14.0-18.0); LYMPHOCYTES % 21.3 % (20.0-50.0); MEAN CORPUSCULAR HEMOGLOBIN 24.9 pg (28.0-32.0); MEAN CORPUSCULAR VOLUME 77.4 fL (80.0-94.0); MEAN PLATELET VOLUME 7.2 fl (7.4-10.4); MONOCYTES % 13.9 % (2.0-8.0); NEUTROPHILS % 63.2 % (40.0-76.0); PLATELET 215 x1000/uL (130-400); RED BLOOD CELL COUNT 3.97 mill/uL (4.7-6.1); RED CELL DISTRIBUTION WIDTH 18.7 % (11.6-14.6)
[2017-09-21 08:07] LABS: CHLORIDE 104 mEq/L (98-107)
[2017-09-21] MEDS ORDERED: IPRATROPIUM/ALBUTEROL 0.5-3(2.5)MG/3ML NEB ONE (08:11)
[2017-09-21] MEDS ORDERED: METHYLPREDNISOLONE SOD SUCC 125 MG/2 ML VIAL IV ONE (11:00)
[2017-09-21] MEDS ORDERED: LEVOFLOXACIN 750MG PREMIX 150 ML IV ONE (11:00)
[2017-09-21] MEDS: FUROSEMIDE 40MG/4ML VIAL IVP SCH ×2 (11:24→21:36)
[2017-09-21] MEDS ORDERED: MAGNESIUM/ALUMINUM HYDROXIDE/SIMETHICONE 30ML UDC PO PRN (11:45)
[2017-09-21] MEDS ORDERED: CLONIDINE 0.1MG TABLET PO PRN (11:45)
[2017-09-21] MEDS ORDERED: IPRATROPIUM/ALBUTEROL 0.5-3(2.5)MG/3ML NEB INH PRN (11:45)
[2017-09-21] MEDS ORDERED: ACETAMINOPHEN 325MG TABLET PO PRN (11:45)
[2017-09-21] MEDS ORDERED: DIPHENHYDRAMINE 50MG/ML VIAL IV PRN (11:45)
[2017-09-21] MEDS ORDERED: DOCUSATE SODIUM 100MG CAPSULE PO PRN (11:45)
[2017-09-21] MEDS ORDERED: NA PHOS,M-B/NA PHOS,DI-BA ENEMA 118ML PR PRN (11:45)
[2017-09-21] MEDS ORDERED: ONDANSETRON HCL 4MG/2ML VIAL IV PRN (11:45)
[2017-09-21] MEDS ORDERED: GUAIFENESIN 200MG/10ML SUGAR FREE UDC PO PRN (11:45)
[2017-09-21] MEDS ORDERED: NITROGLYCERIN 0.4MG TABLET SL SL PRN (11:45)
[2017-09-21] MEDS ORDERED: KETOROLAC 15MG/ML VIAL IV PRN (11:45)
[2017-09-21] MEDS ORDERED: LORAZEPAM 0.5MG TABLET PO PRN (11:45)
[2017-09-21 13:31] LABS: FOLIC ACID (FOLATE) SERUM >20 ng/mL ng/mL (>5.38); VITAMIN B12 SERUM 401 pg/mL (211-911)
[2017-09-21 14:12] LABS: CREATINE KINASE 135 IU/L (39-308); CREATINE KINASE MB FRACTION 2.8 ng/mL (0.5-3.6)
[2017-09-21 16:00] VITALS: BP 121/86
[2017-09-21 16:30] VITALS: BP 121/86
[2017-09-21] MEDS: ASPIRIN 325MG EC TABLET PO SCH (18:22)
[2017-09-21] MEDS: SUCRALFATE 1 G/10 ML UDC PO SCH ×2 (18:22→21:37)
[2017-09-21] MEDS: ENOXAPARIN 40MG/0.4ML SYR SUBCUT SCH (18:23)
[2017-09-21 20:00] VITALS: BP 115/81
[2017-09-21] MEDS: FAMOTIDINE 20MG/2ML VIAL IV SCH (21:36)
[2017-09-21] MEDS: SPIRONOLACTONE 25MG TABLET PO SCH (21:37)
[2017-09-21] MEDS: ZOLPIDEM TARTRATE 5MG TABLET PO PRN (21:52)
[2017-09-22] VITALS: BP 128/74
[2017-09-22 00:12] LABS: CREATINE KINASE 120 IU/L (39-308); CREATINE KINASE MB FRACTION 3.3 ng/mL (0.5-3.6)
[2017-09-22 04:00] VITALS: BP 130/85
[2017-09-22] MEDS: SUCRALFATE 1 G/10 ML UDC PO SCH ×5 (07:06→21:39)
[2017-09-22 08:00] VITALS: BP 123/91
[2017-09-22] MEDS: ASPIRIN 325MG EC TABLET PO SCH (09:03)
[2017-09-22] MEDS: FAMOTIDINE 20MG/2ML VIAL IV SCH ×2 (09:03→21:39)
[2017-09-22] MEDS: FUROSEMIDE 40MG/4ML VIAL IVP SCH ×3 (09:03→21:40)
[2017-09-22] MEDS: SPIRONOLACTONE 25MG TABLET PO SCH ×2 (09:03→21:40)
[2017-09-22 11:15] LABS: *AMPHETAMINES SCREEN URINE NEGATIVE (NEGATIVE); *BARBITURATES SCREEN URINE NEGATIVE (NEGATIVE); *BENZODIAZEPINES SCREEN URINE NEGATIVE (NEGATIVE); *COCAINE SCREEN URINE PRESUMTIVE POSITIVE (NEGATIVE); CANNABINOID URINE SCREEN NEGATIVE (NEGATIVE); METHADONE URINE SCREEN NEGATIVE (NEGATIVE); OPIATES URINE SCREEN NEGATIVE (NEGATIVE); PHENCYCLIDINE URINE SCREEN NEGATIVE (NEGATIVE)
[2017-09-22 12:00] VITALS: BP 110/80
[2017-09-22 16:00] VITALS: BP 99/66
[2017-09-22] MEDS: ENOXAPARIN 40MG/0.4ML SYR SUBCUT SCH (17:43)
[2017-09-22 20:00] VITALS: BP 122/79
[2017-09-22] MEDS: BUDESONIDE 0.5MG/2ML NEB HHN SCH (21:08)
[2017-09-22] MEDS: IPRATROPIUM/ALBUTEROL 0.5-3(2.5)MG/3ML NEB HHN SCH (21:08)
[2017-09-22] MEDS: ZOLPIDEM TARTRATE 5MG TABLET PO PRN (21:46)
[2017-09-23] VITALS: BP 130/89
[2017-09-23] MEDS: IPRATROPIUM/ALBUTEROL 0.5-3(2.5)MG/3ML NEB HHN SCH ×2 (02:42→12:00)
[2017-09-23 04:00] VITALS: BP 104/73
[2017-09-23] MEDS: SUCRALFATE 1 G/10 ML UDC PO SCH (05:45)
[2017-09-23] MEDS: BUDESONIDE 0.5MG/2ML NEB HHN SCH (08:00)
[2017-09-23] MEDS: FUROSEMIDE 40MG/4ML VIAL IVP SCH ×2 (09:00→11:42)
[2017-09-23] MEDS: FAMOTIDINE 20MG/2ML VIAL IV SCH (09:00)
[2017-09-23] MEDS: ASPIRIN 325MG EC TABLET PO SCH (11:39)
[2017-09-23] MEDS: SPIRONOLACTONE 25MG TABLET PO SCH (11:40)
[2017-09-23 13:16] VITALS: BP 129/77
== END 2017-09-23 13:58 | disposition home or self-care (01) | DRG 816 ==
LOC: ER 05:39 → 5WST 11:14 → ENRESERV 14:07
PROVIDERS: ADMIT Internal Medicine; ATTEND Internal Medicine
DX: T40.5X1A Poisoning by cocaine, accidental (unintentional), initial encounter (principal); J96.00 Acute respiratory failure, unspecified whether with hypoxia or hypercapnia; I50.43 Acute on chronic combined systolic (congestive) and diastolic (congestive) heart failure; E44.0 Moderate protein-calorie malnutrition; J68.0 Bronchitis and pneumonitis due to chemicals, gases, fumes and vapors; I42.9 Cardiomyopathy, unspecified; E83.51 Hypocalcemia; I27.20 Pulmonary hypertension, unspecified; I11.0 Hypertensive heart disease with heart failure; J44.1 Chronic obstructive pulmonary disease with (acute) exacerbation; B19.20 Unspecified viral hepatitis C without hepatic coma; D63.8 Anemia in other chronic diseases classified elsewhere; F14.10 Cocaine abuse, uncomplicated; F12.10 Cannabis abuse, uncomplicated; F17.210 Nicotine dependence, cigarettes, uncomplicated; I25.10 Atherosclerotic heart disease of native coronary artery without angina pectoris; R74.0 Nonspecific elevation of levels of transaminase and lactic acid dehydrogenase [LDH]; Z60.2 Problems related to living alone; R07.89 Other chest pain; I25.2 Old myocardial infarction; Z95.1 Presence of aortocoronary bypass graft; Z95.2 Presence of prosthetic heart valve; Z88.8 Allergy status to other drugs, medicaments and biological substances; Z79.899 Other long term (current) drug therapy; Z82.49 Family history of ischemic heart disease and other diseases of the circulatory system; Z83.3 Family history of diabetes mellitus; Z68.1 Body mass index [BMI] 19.9 or less, adult; Y92.89 Other specified places as the place of occurrence of the external cause
CPT/HCPCS: 36415; 71045; 73700; 80053; 80061; 80305; 82550; 82553; 82607; 82746; 83036; 83540; 83550; 83605; 83690; 83880; 84484; 85025; 87040; 93005; 93306; 93970; 94640; 96365; 96366; 96375; 99285; J1650; J1940; J1956; J2930; J3490; J7620; J7626

== ENCOUNTER 2017-12-24 00:11 | Emergency (ER) | payer MEDICAID ==
[~2017-12-24] VITALS: Ht 182.9 cm; Wt 73.0 kg
[2017-12-24] MEDS ORDERED: KETOROLAC 30MG/ML VIAL IV ONE ×2 (00:45→01:00)
[2017-12-24 01:11] LABS: HEMATOCRIT. 32.3 % (42.0-52.0); HEMOGLOBIN. 10.4 g/dL (14.0-18.0); MEAN CORPUSCULAR HEMOGLOBIN 25.6 pg (28.0-32.0); MEAN PLATELET VOLUME 7.1 fl (7.4-10.4); PLATELET 204 x1000/uL (130-400); RED BLOOD CELL COUNT 4.08 mill/uL (4.7-6.1); RED CELL DISTRIBUTION WIDTH 20.4 % (11.6-14.6)
[2017-12-24 01:14] LABS: CHLORIDE 103 mEq/L (98-107)
[2017-12-24 01:17] LABS: INR 1.3; PROTHROMBIN TIME 13.6 sec (9.4-11.6)
[2017-12-24 02:40] LABS: PLATELET ESTIMATE NORMAL
[2017-12-24] MEDS ORDERED: IOHEXOL-300 100 ML BOTTLE ONE (03:04)
[2017-12-24 04:24] LABS: CLARITY URINE CLEAR (CLEAR); COLOR URINE YELLOW (YELLOW); KETONES URINE NEGATIVE (NEGATIVE); LEUKOCYTE ESTERASE URINE NEGATIVE (NEGATIVE); NITRITE URINE NEGATIVE (NEGATIVE); OCCULT BLOOD URINE NEGATIVE (NEGATIVE); PH URINE 5.5 (4.5-8.0); PROTEIN URINE NEGATIVE (NEGATIVE); SPECIFIC GRAVITY URINE 1.073 (1.005-1.030)
[2017-12-24] MEDS ORDERED: IBUPROFEN 600MG TABLET PO ONE (05:00)
[2017-12-24 05:11] VITALS: BP 127/80
== END 2017-12-24 05:11 | disposition home or self-care (01) ==
LOC: ER 00:11 → CANBEDREQ 05:51
DX: R10.11 Right upper quadrant pain (principal); I10 Essential (primary) hypertension; N28.1 Cyst of kidney, acquired; F17.200 Nicotine dependence, unspecified, uncomplicated; Z85.05 Personal history of malignant neoplasm of liver; Z88.6 Allergy status to analgesic agent; Z95.1 Presence of aortocoronary bypass graft
CPT/HCPCS: 36415; 71045; 74177; 76700; 80053; 81003; 83605; 83690; 84484; 85025; 85610; 93005; 96374; 99285; J1885; Q9967; Z7610

== ENCOUNTER 2017-12-28 04:46 | Emergency (ER) | payer MEDICAID ==
[~2017-12-28] VITALS: Ht 175.3 cm; Wt 64.0 kg
[2017-12-28] MEDS ORDERED: HYDROCODONE/ACETAMINOPHEN 5/325MG TABLET PO ONE (06:15)
[2017-12-28 06:33] LABS: CLARITY URINE CLEAR (CLEAR); COLOR URINE DARK YELLOW (YELLOW); KETONES URINE NEGATIVE (NEGATIVE); LEUKOCYTE ESTERASE URINE TRACE (NEGATIVE); NITRITE URINE NEGATIVE (NEGATIVE); OCCULT BLOOD URINE NEGATIVE (NEGATIVE); PROTEIN URINE TRACE (NEGATIVE); SPECIFIC GRAVITY URINE 1.031 (1.005-1.030)
[2017-12-28 09:52] VITALS: BP 115/77
== END 2017-12-28 10:14 | disposition home or self-care (01) ==
LOC: ER 04:46
DX: M47.896 Other spondylosis, lumbar region (principal); I10 Essential (primary) hypertension; Z95.1 Presence of aortocoronary bypass graft; Z85.9 Personal history of malignant neoplasm, unspecified; Z88.8 Allergy status to other drugs, medicaments and biological substances
CPT/HCPCS: 72100; 81003; 99285

== ENCOUNTER 2018-01-31 05:55 | Emergency (ER) | payer MEDICAID ==
[~2018-01-31] VITALS: Ht 170.2 cm; Wt 50.0 kg
[~2018-01-31 05:55] MED LIST changes: +LEVO500T2 MT
[2018-01-31] MEDS ORDERED: KETOROLAC 30MG/ML VIAL IV STA (06:21)
[2018-01-31 08:38] LABS: HEMOGLOBIN. 9.2 g/dL (14.0-18.0); MEAN CORPUSCULAR HEMOGLOBIN 28.6 pg (28.0-32.0); MEAN CORPUSCULAR VOLUME 84.5 fL (80.0-94.0); MEAN PLATELET VOLUME 6.7 fl (7.4-10.4); PLATELET 170 x1000/uL (130-400); RED CELL DISTRIBUTION WIDTH 22.1 % (11.6-14.6)
[2018-01-31 08:45] LABS: CHLORIDE 101 mEq/L (98-107)
[2018-01-31 08:48] LABS: INR 1.4; PROTHROMBIN TIME 14.7 sec (9.4-11.6)
[2018-01-31 09:36] LABS: PLATELET ESTIMATE NORMAL
[2018-01-31] MEDS ORDERED: AZITHROMYCIN 500 MG TABLET PO ONE (10:15)
[2018-01-31] MEDS ORDERED: POTASSIUM CHLORIDE 20MEQ TABLET SR PO ONE (10:15)
[2018-01-31 11:35] VITALS: BP 138/75
== END 2018-01-31 11:36 | disposition home or self-care (01) ==
LOC: ER 05:55 → CANBEDREQ 11:36
DX: C22.9 Malignant neoplasm of liver, not specified as primary or secondary (principal); E87.6 Hypokalemia; M79.662 Pain in left lower leg; M79.661 Pain in right lower leg; E11.9 Type 2 diabetes mellitus without complications; I11.0 Hypertensive heart disease with heart failure; I50.9 Heart failure, unspecified; I25.2 Old myocardial infarction; F17.200 Nicotine dependence, unspecified, uncomplicated; Z88.6 Allergy status to analgesic agent; Z79.899 Other long term (current) drug therapy; Z86.73 Personal history of transient ischemic attack (TIA), and cerebral infarction without residual deficits; Z95.1 Presence of aortocoronary bypass graft
CPT/HCPCS: 36415; 71045; 74176; 80053; 83690; 85025; 85610; 93005; 93970; 96374; 99285; J1885; Z7610

== ENCOUNTER 2018-02-07 03:51 | Inpatient (IN) | payer MEDICAID ==
[~2018-02-07] VITALS: Ht 182.9 cm; Wt 61.2 kg
[2018-02-07] MEDS ORDERED: ONDANSETRON HCL 4MG/2ML VIAL IV STA (04:11)
[2018-02-07] MEDS ORDERED: MORPHINE SULFATE 4 MG/ML CPJ (NOT FOR IM USE) IV STA (04:11)
[2018-02-07] MEDS ORDERED: FUROSEMIDE 40MG/4ML VIAL IV ONE (04:15)
[2018-02-07 04:45] LABS: BASOPHILS % 0.7 % (0.0-2.0); EOSINOPHILS % 0.4 % (0.0-5.0); HEMATOCRIT. 27.8 % (42.0-52.0); HEMOGLOBIN. 9.4 g/dL (14.0-18.0); LYMPHOCYTES % 17.3 % (20.0-50.0); MEAN CORPUSCULAR HEMOGLOBIN 29.3 pg (28.0-32.0); MEAN CORPUSCULAR VOLUME 86.7 fL (80.0-94.0); MEAN PLATELET VOLUME 7.6 fl (7.4-10.4); MONOCYTES % 13.2 % (2.0-8.0); NEUTROPHILS % 68.4 % (40.0-76.0); PLATELET 173 x1000/uL (130-400); RED BLOOD CELL COUNT 3.21 mill/uL (4.7-6.1); RED CELL DISTRIBUTION WIDTH 22.6 % (11.6-14.6)
[2018-02-07 04:49] LABS: CHLORIDE 101 mEq/L (98-107)
[2018-02-07 04:52] LABS: INR 1.4; PARTIAL THROMBOPLASTIN TIME 26.8 sec (23.4-31.0); PROTHROMBIN TIME 13.6 sec (9.1-11.1)
[2018-02-07 04:55] LABS: ETHANOL BLOOD < 10 mg/dL
[2018-02-07] MEDS ORDERED: NITROGLYCERIN 0.4MG TABLET SL SL PRN (07:15)
[2018-02-07] MEDS ORDERED: MAGNESIUM/ALUMINUM HYDROXIDE/SIMETHICONE 30ML UDC PO PRN (07:15)
[2018-02-07] MEDS ORDERED: ONDANSETRON HCL 4MG/2ML VIAL IV PRN (07:15)
[2018-02-07] MEDS ORDERED: NA PHOS,M-B/NA PHOS,DI-BA ENEMA 118ML PR PRN (07:15)
[2018-02-07] MEDS ORDERED: DOCUSATE SODIUM 100MG CAPSULE PO PRN (07:15)
[2018-02-07] MEDS ORDERED: IPRATROPIUM/ALBUTEROL 0.5-3(2.5)MG/3ML NEB INH PRN (07:15)
[2018-02-07] MEDS ORDERED: ACETAMINOPHEN 325MG TABLET PO PRN (07:15)
[2018-02-07] MEDS ORDERED: LORAZEPAM 0.5MG TABLET PO PRN (07:15)
[2018-02-07] MEDS ORDERED: CLONIDINE 0.1MG TABLET PO PRN (07:15)
[2018-02-07] MEDS ORDERED: GUAIFENESIN 200MG/10ML SUGAR FREE UDC PO PRN (07:15)
[2018-02-07] MEDS ORDERED: DIPHENHYDRAMINE 50MG/ML VIAL IV PRN (07:15)
[2018-02-07 08:01] LABS: CLARITY URINE CLEAR (CLEAR); COLOR URINE YELLOW (YELLOW); KETONES URINE NEGATIVE (NEGATIVE); LEUKOCYTE ESTERASE URINE NEGATIVE (NEGATIVE); NITRITE URINE NEGATIVE (NEGATIVE); OCCULT BLOOD URINE NEGATIVE (NEGATIVE); PROTEIN URINE NEGATIVE (NEGATIVE); SPECIFIC GRAVITY URINE 1.005 (1.005-1.030)
[2018-02-07 08:31] LABS: *AMPHETAMINES SCREEN URINE NEGATIVE (NEGATIVE); *BARBITURATES SCREEN URINE NEGATIVE (NEGATIVE)
[2018-02-07 08:32] LABS: *BENZODIAZEPINES SCREEN URINE NEGATIVE (NEGATIVE); *COCAINE SCREEN URINE PRESUMTIVE POSITIVE (NEGATIVE); METHADONE URINE SCREEN NEGATIVE (NEGATIVE); OPIATES URINE SCREEN NEGATIVE (NEGATIVE); PHENCYCLIDINE URINE SCREEN NEGATIVE (NEGATIVE)
[2018-02-07 08:33] LABS: CANNABINOID URINE SCREEN NEGATIVE (NEGATIVE)
[2018-02-07 08:50] VITALS: BP 118/83
[2018-02-07] MEDS: FAMOTIDINE 20MG TABLET PO SCH ×2 (10:14→20:02)
[2018-02-07] MEDS: SPIRONOLACTONE 25MG TABLET PO SCH ×2 (10:15→17:03)
[2018-02-07] MEDS: ENOXAPARIN 40MG/0.4ML SYR SUBCUT SCH (10:15)
[2018-02-07] MEDS: FUROSEMIDE 40MG/4ML VIAL IVP SCH ×2 (10:15→17:03)
[2018-02-07] MEDS: KETOROLAC 15MG/ML VIAL IV PRN ×2 (10:16→20:27)
[2018-02-07 11:30] VITALS: BP 115/81
[2018-02-07 15:09] LABS: CREATINE KINASE 95 IU/L (39-308)
[2018-02-07 15:11] LABS: CREATINE KINASE MB FRACTION 1.9 ng/mL (0.5-3.6)
[2018-02-07 16:00] VITALS: BP 115/83
[2018-02-07] MEDS ORDERED: METOLAZONE 5MG TABLET PO NR (18:15)
[2018-02-07 20:00] VITALS: BP 115/50
[2018-02-07] MEDS ORDERED: ZOLPIDEM TARTRATE 5MG TABLET PO PRN (21:00)
[2018-02-08] VITALS: BP 106/75
[2018-02-08 00:12] LABS: CREATINE KINASE 78 IU/L (39-308)
[2018-02-08 00:13] LABS: CREATINE KINASE MB FRACTION 1.3 ng/mL (0.5-3.6)
[2018-02-08 04:00] VITALS: BP 103/71
[2018-02-08] MEDS: SPIRONOLACTONE 25MG TABLET PO SCH (06:14)
[2018-02-08] MEDS: FUROSEMIDE 40MG/4ML VIAL IVP SCH (06:14)
[2018-02-08] MEDS: KETOROLAC 15MG/ML VIAL IV PRN (06:44)
[2018-02-08 07:41] LABS: CHLORIDE 98 mEq/L (98-107)
[2018-02-08] MEDS: ENOXAPARIN 40MG/0.4ML SYR SUBCUT SCH (08:54)
[2018-02-08] MEDS: FAMOTIDINE 20MG TABLET PO SCH (08:54)
[2018-02-08] MEDS ORDERED: BUDESONIDE 0.5MG/2ML NEB HHN SCH (09:00)
[2018-02-08] MEDS ORDERED: NICOTINE 21MG PATCH TD SCH (09:00)
[2018-02-08 10:01] VITALS: BP 119/77
[2018-02-08] MEDS ORDERED: IPRATROPIUM/ALBUTEROL 0.5-3(2.5)MG/3ML NEB HHN SCH (12:00)
== END 2018-02-08 15:05 | disposition home or self-care (01) | DRG 816 ==
LOC: ER 04:06 → 8WST 05:52 → EDBEDREQ 05:55 → EDBEDREQTM 05:55 → ENRESERV 06:54
PROVIDERS: ADMIT Internal Medicine; ATTEND Internal Medicine
DX: T40.5X1A Poisoning by cocaine, accidental (unintentional), initial encounter (principal); J96.00 Acute respiratory failure, unspecified whether with hypoxia or hypercapnia; E43 Unspecified severe protein-calorie malnutrition; I50.43 Acute on chronic combined systolic (congestive) and diastolic (congestive) heart failure; I42.9 Cardiomyopathy, unspecified; J68.0 Bronchitis and pneumonitis due to chemicals, gases, fumes and vapors; I27.20 Pulmonary hypertension, unspecified; E83.51 Hypocalcemia; R16.0 Hepatomegaly, not elsewhere classified; I11.0 Hypertensive heart disease with heart failure; B19.20 Unspecified viral hepatitis C without hepatic coma; D63.8 Anemia in other chronic diseases classified elsewhere; E11.9 Type 2 diabetes mellitus without complications; F14.10 Cocaine abuse, uncomplicated; F12.10 Cannabis abuse, uncomplicated; F17.210 Nicotine dependence, cigarettes, uncomplicated; K74.60 Unspecified cirrhosis of liver; I25.10 Atherosclerotic heart disease of native coronary artery without angina pectoris; I25.2 Old myocardial infarction; Z86.73 Personal history of transient ischemic attack (TIA), and cerebral infarction without residual deficits; Z95.1 Presence of aortocoronary bypass graft; Z95.2 Presence of prosthetic heart valve; Z91.19 Patient's noncompliance with other medical treatment and regimen; Z91.11 Patient's noncompliance with dietary regimen; Z71.51 Drug abuse counseling and surveillance of drug abuser; Z68.1 Body mass index [BMI] 19.9 or less, adult; Z88.8 Allergy status to other drugs, medicaments and biological substances; Y92.89 Other specified places as the place of occurrence of the external cause; Z79.899 Other long term (current) drug therapy
CPT/HCPCS: 36415; 71045; 76700; 80048; 80053; 80061; 80305; 81003; 82550; 82553; 83036; 83880; 84484; 85025; 85610; 85730; 93005; 93970; 96374; 96375; 97162; 97166; 99285; G0482; J1650; J1885; J1940; J2270; J2405; J7620; J7626